=== PATIENT | female | born 1960 | race Caucasian/White ===

== ENCOUNTER 2017-09-20 11:58 | Emergency (ER) | payer MEDICARE, OTHER, BC ==
[2017-09-20] MEDS: ONDANSETRON (ODT) 4 MG TAB ODT (15:29)
[2017-09-20 15:37] LABS: ADD MAN DIFF? NO
[2017-09-20 15:41] LABS: WHITE BLOOD COUNT 7.1 10^3/ul (4.8-10.8)
[2017-09-20 15:41] LABS: BASOPHILS % 0.6 % (0.0-2.0); EOSINOPHILS # 0.1 10^3/ul (0.0-0.5); EOSINOPHILS % 1.7 % (0.0-7.0); HEMATOCRIT 37.4 % (37.0-47.0); HEMOGLOBIN 12.7 g/dl (12.0-16.0); LYMPHOCYTES % 42.5 % (15.0-51.0); MEAN CORPUSCULAR HEMOGLOBIN 30.2 pg (29.0-33.0); MEAN CORPUSCULAR VOLUME 88.8 fl (82.0-101.0); MEAN PLATELET VOLUME 10.8 fl (7.4-10.4); MONOCYTE # 0.8 10^3/ul (0.3-0.9); MONOCYTES % 11.4 % (0.0-11.0); NEUTROPHIL # 3.1 10^3/ul (1.6-7.5); NEUTROPHILS % 43.4 % (39.0-77.0); PLATELET COUNT 239 10^3/UL (140-415); RED BLOOD COUNT 4.21 10^6/ul (4.20-5.40); RED CELL DISTRIBUTION WIDTH 13.1 % (11.5-14.5)
[2017-09-20 15:46] LABS: ADD UMIC YES; UR ASCORBIC ACID 40 mg/dL (NEGATIVE); UR BACTERIA FEW /HPF (NONE SEEN); UR BILIRUBIN (Dip) NEGATIVE (NEGATIVE); UR BLOOD (Dip) NEGATIVE (NEGATIVE); UR CLARITY SLIGHTLY CLOUDY (CLEAR); UR COLOR YELLOW (YELLOW); UR GLUCOSE (Dip) NEGATIVE (NEGATIVE); UR KETONES (Dip) 1+ mg/dL (NEGATIVE); UR LEUKOCYTE ESTERASE (Dip) 3+ Leu/ul (NEGATIVE); UR MUCUS MODERATE /HPF (NONE SEEN); UR NITRITE (Dip) NEGATIVE (NEGATIVE); UR RBC 4 /HPF (0-5); UR SPECIFIC GRAVITY (Dip) 1.025 (1.003-1.030); UR SQUAMOUS EPITHELIAL CELL FEW /HPF (FEW); UR TOTAL PROTEIN (Dip) NEGATIVE (NEGATIVE); UR UROBILINOGEN (Dip) NEGATIVE (NEGATIVE); UR WBC 6 /HPF (0-5)
[2017-09-20 16:02] LABS: ALANINE AMINOTRANSFERASE 60 IU/L (13-69); ALBUMIN 4.5 g/dl (3.3-4.9); ALBUMIN/GLOBULIN RATIO 1.45; ALKALINE PHOSPHATASE 64 IU/L (42-121); ANION GAP 14 (8-16); ASPARTATE AMINO TRANSFERASE 54 IU/L (15-46); BILIRUBIN,INDIRECT 0.4 mg/dl (0-1.1); BILIRUBIN,TOTAL 0.4 mg/dl (0.2-1.3); BLOOD UREA NITROGEN 19 mg/dl (7-20); CALCIUM 9.6 mg/dl (8.4-10.2); CARBON DIOXIDE 29 mmol/L (21-31); CHLORIDE 105 mmol/L (97-110); CREATININE 0.56 mg/dl (0.44-1.00); GLUCOSE 83 mg/dl (70-220); POTASSIUM 3.6 mmol/L (3.5-5.1); SODIUM 144 mmol/L (135-144); TOTAL PROTEIN 7.6 g/dl (6.1-8.1)
[2017-09-20 16:26] LABS: LIPASE 33 U/L (23-300)
== END 2017-09-20 16:35 | disposition home or self-care (01) ==
LOC: FTE 11:58
DX: N39.0 Urinary tract infection, site not specified (principal); F15.90 Other stimulant use, unspecified, uncomplicated; F14.90 Cocaine use, unspecified, uncomplicated; R42 Dizziness and giddiness
CPT/HCPCS: 80053; 81001; 83690; 85025; 93005; 99284-25

== ENCOUNTER 2018-01-05 16:52 | Emergency (ER) | payer MEDICARE, OTHER ==
[2018-01-05] MEDS ORDERED: ONDANSETRON 4 MG INJ IV (18:28)
[2018-01-05] MEDS ORDERED: ACETAMINOPHEN 500 MG TAB PO (18:28)
[2018-01-05] MEDS ORDERED: LIDOCAINE/MYLANTA 40 ML BTL PO (18:28)
[2018-01-05] MEDS ORDERED: SOD CHLORIDE 0.9% 1,000 ML IV (18:28)
[2018-01-05] MEDS ORDERED: KETOROLAC 30 MG INJ IV (18:28)
== END 2018-01-05 19:03 | disposition home or self-care (01) ==
LOC: FTE 16:52
DX: K08.89 Other specified disorders of teeth and supporting structures (principal)
CPT/HCPCS: 99283

== ENCOUNTER 2018-09-06 00:33 | Emergency (ER) | payer MEDICARE, OTHER ==
[2018-09-06] MEDS: NAPROXEN 500 MG TAB PO (05:11)
== END 2018-09-06 05:29 | disposition home or self-care (01) ==
LOC: FTE 00:33 → E/R 05:29
DX: M54.9 Dorsalgia, unspecified (principal); Z87.891 Personal history of nicotine dependence
CPT/HCPCS: 99282

== ENCOUNTER 2018-09-08 17:01 | Emergency (ER) | payer MEDICARE, OTHER ==
[2018-09-08] MEDS: LORAZEPAM 1 MG TAB PO (17:52)
[2018-09-08] MEDS: IBUPROFEN 600 MG TAB PO (17:52)
== END 2018-09-08 18:40 | disposition home or self-care (01) ==
LOC: E/R 17:01
DX: F15.10 Other stimulant abuse, uncomplicated (principal); F31.12 Bipolar disorder, current episode manic without psychotic features, moderate; I10 Essential (primary) hypertension; F17.210 Nicotine dependence, cigarettes, uncomplicated
CPT/HCPCS: 99283

== ENCOUNTER 2018-11-14 10:14 | Emergency (ER) | payer MEDICARE, OTHER | END 2018-11-14 14:55 | disposition home or self-care (01) | LOC: FTE 10:14 | DX: A49.02 Methicillin resistant Staphylococcus aureus infection, unspecified site (principal); Z87.891 Personal history of nicotine dependence | CPT/HCPCS: 87081; 99283 ==

== ENCOUNTER 2019-01-11 01:16 | Emergency (ER) | payer MEDICARE, OTHER | END 2019-01-11 02:45 | disposition home or self-care (01) | LOC: FTE 01:16 | DX: Z76.0 Encounter for issue of repeat prescription (principal); Z87.891 Personal history of nicotine dependence; Z48.00 Encounter for change or removal of nonsurgical wound dressing | CPT/HCPCS: 99281 ==

== ENCOUNTER 2019-02-17 21:54 | Emergency (ER) | payer MEDICARE, OTHER ==
[2019-02-17] MEDS: predniSONE 20 MG TAB PO (22:07)
[2019-02-17] MEDS: EPINEPHrine 1 MG INJ IM (22:07)
== END 2019-02-17 23:10 | disposition home or self-care (01) ==
LOC: E/R 21:54
DX: T63.444A Toxic effect of venom of bees, undetermined, initial encounter (principal); T78.2XXA Anaphylactic shock, unspecified, initial encounter; Z87.891 Personal history of nicotine dependence
CPT/HCPCS: 96372; 99291-25

== ENCOUNTER 2019-02-28 22:11 | Emergency (ER) | payer MEDICARE, OTHER ==
[2019-03-01] MEDS: IBUPROFEN 600 MG TAB PO (01:43)
== END 2019-03-01 05:49 | disposition home or self-care (01) ==
LOC: FTE 22:11
DX: S82.452A Displaced comminuted fracture of shaft of left fibula, initial encounter for closed fracture (principal); W18.39XA Other fall on same level, initial encounter; Y92.9 Unspecified place or not applicable; Z87.891 Personal history of nicotine dependence
CPT/HCPCS: 73610; 73630-LT; 93971; 99284-25

== ENCOUNTER 2019-03-03 21:41 | Emergency (ER) | payer MEDICARE, OTHER ==
[2019-03-03] MEDS: CEFTRIAXONE 1 GM INJ IM (22:46)
== END 2019-03-03 23:20 | disposition home or self-care (01) ==
LOC: FTE 21:41
DX: S99.912D Unspecified injury of left ankle, subsequent encounter (principal); F17.210 Nicotine dependence, cigarettes, uncomplicated; W19.XXXD Unspecified fall, subsequent encounter; Z86.14 Personal history of Methicillin resistant Staphylococcus aureus infection
CPT/HCPCS: 29515; 96372; 99284-25